=== PATIENT | female | born 1960 | race Hispanic/Latino ===

== ENCOUNTER 2017-12-15 07:48 | Day surgery (SDC) | payer BC ==
[2017-12-15] MEDS ORDERED: Lactated Ringer's 1,000 ML IV ONE (08:36)
[2017-12-15] MEDS ORDERED: Midazolam 2 MG/2 ML VIAL ONE (09:30)
[2017-12-15] MEDS ORDERED: Propofol 10 mg/ml Inj (20 ML) ONE (09:30)
[2017-12-15 10:17] VITALS: TEMP 97
[2017-12-15 10:34] VITALS: BP 112/63; PULSE 57; RESP 21; O2SAT 98
== END 2017-12-15 10:51 | disposition home or self-care (01) ==
LOC: H.ENDO 07:48
PROVIDERS: ATTEND Internal Medicine Gastroenterology
DX: Z12.11 Encounter for screening for malignant neoplasm of colon (principal); K21.9 Gastro-esophageal reflux disease without esophagitis; K29.50 Unspecified chronic gastritis without bleeding; K64.8 Other hemorrhoids; K57.30 Diverticulosis of large intestine without perforation or abscess without bleeding; D64.9 Anemia, unspecified
CPT/HCPCS: 43239; 45378; 88305; 88342; J2250; J2704; J7120